=== PATIENT | female | born 1940 | race Caucasian/White ===

== ENCOUNTER → 2021-03-16 | Outpatient (CLI) | payer MEDICARE, OTHER ==
--- NOTE | 2021-03-16 09:14 | RAD ---
XR CHEST 2V History: Covid 3 weeks ago. Shortness of breath. Comparison: None. Technique: PA and lateral chest radiographs. Findings: The lungs are hyperinflated. No airspace consolidation, pleural effusion or pneumothorax. The cardiom ediastinal silhoutte and pulmonary vasculature are within normal limits. Calcification of the aorta. Mild degenerative changes the shoulders and thoracic spine. Impression: 1. Hyperinflation without focal airspace disease. Electronically signed by: Fredy Damon MD (03/16/2021 9:11 AM) [id number]
== END ==
LOC: PMG 08:46
PROVIDERS: ATTEND Nurse Practitioner Family
DX: J98.11 Atelectasis (principal); M19.011 Primary osteoarthritis, right shoulder; M19.012 Primary osteoarthritis, left shoulder; M47.814 Spondylosis without myelopathy or radiculopathy, thoracic region; Z86.16 Personal history of COVID-19
CPT/HCPCS: 71046